=== PATIENT | male | born 1980 ===

== ENCOUNTER 2017-10-09 11:00 | Emergency (ER) | payer OTHER ==
[2017-10-09 11:11] VITALS: BP 99/67; PULSE 89; RESP 18; TEMP 98.2; O2SAT 97
--- NOTE | 2017-10-09 11:30 | C.PDOC ---
History Of Present Illness 36 yo male come in for evaluation of Right knee pain gradually developed for past 1 year. Pt reports, for past few days, pain significantly worsen, localized , worse with weight bearing,. Pt admits, "ambulate for work a lot". Pt sts, take Ibuprofen at home without improvement. Otherwise, pt denies known direct trauma or injury, fever, chills, sore throat, denies swelling , redness, deformity, weakness, sensory or vascular deficits to Right leg. Ambulate to Ed for evaluation, not in any apparent distress. Time Seen by Provider: 10/09/17 11:18 Chief Complaint (Nursing): Lower Extremity Problem/Injury History Per: Patient Past Medical History Reviewed: Historical Data, Nursing Documentation, Vital Signs Vital Signs: Last Vital Signs Temp 98.2 F 10/09/17 11:08 Pulse 89 10/09/17 11:08 Resp 18 10/09/17 11:08 BP 99/67 L 10/09/17 11:08 Pulse Ox 97 10/09/17 11:08 - Medical History PMH: No Chronic Diseases Surgical History: No Surg Hx Family History: States: No Known Family Hx - Social History Hx Alcohol Use: Yes Hx Substance Use: No - Immunization History Hx Tetanus Toxoid Vaccination: Yes Hx Influenza Vaccination: Yes Hx Pneumococcal Vaccination: No Review Of Systems Except As Marked, All Systems Reviewed And Found Negative. Constitutional: Negative for: Fever, Chills ENT: Negative for: Throat Pain Musculoskeletal: Positive for: Other (Right knee pain) Skin: Negative for: Rash, Lesions, Bruising Neurological: Negative for: Weakness, Numbness Physical Exam - Physical Exam Appears: Well, Non-toxic, No Acute Distress Skin: Normal Color, Warm, No Rash, No Ecchymosis Oral Mucosa: Moist Throat: No Erythema, No Exudate, No Drooling Extremity: Normal ROM (mild discomfort to Right knee flexion. NO neurovascular deficits.), Tenderness (over anterior aspect Right knee, no edmea, no erythema.) , No Calf Tenderness (right), Capillary Refill (less than 2sec to Right foot), No Deformity, No Swelling Neurological/Psych: Oriented x3, Normal Speech, Normal Motor, Normal Sensation, Normal Reflexes ED Course And Treatment O2 Sat by Pulse Oximetry: 97 - Other Rad Right knee X-Ray: Interpreted by Me, Viewed By Me Interpretation: (-) acute fx or dislocation Progress Note: On re-eval, pt is afebrile, hemodynamicaly stable. Non-toxic. Ambulatory in ED with stable gait. ENT: no acute findings. Right kne: mild tendernes sover patella, no edema, no erythema, no palpable deformity. FAROM, no neurovascular deficits. Imaging review (-) acute fx or disloctaion. Vladislav wrap applied to Right knee. Pt has clinical findings c/w Right knee arthralgia. Pt advised and ref. to F/u with PMD, Ortho in 2 -3 days for re- eavl. return to Ed if any worsening or new changes. Disposition Counseled Patient/Family Regarding: Studies Performed, Diagnosis, Need For Followup, Rx Given - Disposition Referrals: Lucio Mckeon MD [Staff Provider] - Anish Hargrove MD [Staff Provider] - Disposition: HOME/ ROUTINE Disposition Time: 11:40 Condition: STABLE Additional Instructions: RICE-REST, ICE, COMPRESSION, ELEVATION VLADISLAV WRAP TO RIGHT KNEE FOR 2-3 WEEKS TAKE MEDICATION PRESCRIBED FOLLOW UP WITH ORTHOPEDIST IN 2-3 DAYS FOR RE-EVALUATION. RETURN TO ED IF ANY NEW CHANGES. Prescriptions: Prednisone [Deltasone] 40 mg PO DAILY #6 tablet traMADol [Ultram] 50 mg PO TID #7 tab Instructions: Knee Sprain (DC), Chronic Knee Pain (DC) - Clinical Impression Clinical Impression: Arthralgia of knee
--- NOTE | 2017-10-09 11:59 | RAD ---
Date of service: 10/09/2017 PROCEDURE: Right Knee Radiographs. HISTORY: pain COMPARISON: None. FINDINGS: BONES: Normal. No fracture. JOINTS: Normal. No osteoarthritis. JOINT EFFUSION: None. OTHER FINDINGS: None. IMPRESSION: Normal radiographs of the right knee.
== END 2017-10-09 12:18 | disposition home or self-care (01) ==
LOC: C.ER 11:00
DX: M25.561 Pain in right knee (principal)

== ENCOUNTER 2017-12-29 14:00 | Emergency (ER) | payer OTHER ==
--- NOTE | 2017-12-29 15:30 | C.PDOC ---
History Of Present Illness 37 year old male presents to the ED complaining of stabbing abdominal pain ongoing for 5 days. Pain started when he was doing laundry. Reports his father recently . Notes he had a similar presentation of pain many years ago when his 's uncle . He denies any SI / HI or current suicidal ideation. Denies any fever, chills, shortness of breath, chest pain, nausea, vomiting, diarrhea, constipation, urinary symptoms, or any other complaints. States he took 3 Advils [employer] and reports pain is improving. Time Seen by Provider: 12/29/17 15:30 Chief Complaint (Nursing): Abdominal Pain History Per: Patient History/Exam Limitations: no limitations Onset/Duration Of Symptoms: Days Current Symptoms Are (Timing): Better Location Of Pain/Discomfort: Epigastric Radiation Of Pain To:: None Quality Of Discomfort: Stabbing Associated Symptoms: denies: Fever, Chills, Nausea, Vomiting, Diarrhea, Chest Pain, Urinary Symptoms Past Medical History Reviewed: Historical Data, Nursing Documentation, Vital Signs Vital Signs: Last Vital Signs Temp 98.9 F 12/29/17 14:24 Pulse 80 12/29/17 14:24 Resp 18 12/29/17 14:24 BP 105/72 12/29/17 14:24 Pulse Ox 99 12/29/17 14:24 - Medical History PMH: No Chronic Diseases Surgical History: No Surg Hx Family History: States: No Known Family Hx - Social History Hx Tobacco Use: Yes Hx Alcohol Use: Yes Hx Substance Use: No - Immunization History Hx Tetanus Toxoid Vaccination: No Hx Influenza Vaccination: No Hx Pneumococcal Vaccination: No Review Of Systems Constitutional: Negative for: Fever, Chills, Weakness, Malaise Eyes: Negative for: Pain, Eyelid Inflammation ENT: Negative for: Ear Pain, Nose Congestion, Mouth Pain Cardiovascular: Negative for: Chest Pain, Palpitations, Edema Respiratory: Negative for: Shortness of Breath, SOB with Excertion Gastrointestinal: Positive for: Abdominal Pain (epigastric ). Negative for: Nausea, Vomiting, Diarrhea, Constipation, Melena, Hematemesis Genitourinary: Negative for: Dysuria, Hematuria, Penile Discharge Musculoskeletal: Negative for: Neck Pain, Shoulder Pain, Back Pain Skin: Negative for: Rash, Lesions Neurological: Negative for: Weakness, Numbness Psych: Negative for: Anxiety, Depression, Psychosis, Suicidal ideation, Withdrawal Physical Exam - Physical Exam Appears: Non-toxic, No Acute Distress Skin: Warm, Dry, No Rash Head: Normacephalic Eye(s): bilateral: Normal Inspection Nose: Normal Oral Mucosa: Moist Neck: Normal, Normal ROM, Supple, Other (no meningeal signs) Cardiovascular: Rhythm Regular Respiratory: No Rales, No Rhonchi, No Wheezing Gastrointestinal/Abdominal: No Normal Exam, Soft, Tenderness (epigastric ), No Organomegaly, No Mass, No Distention, No Guarding, No Rebound, No Hernia Back: Normal Inspection, No CVA Tenderness Extremity: Bilateral: Atraumatic, Normal Color And Temperature, Normal ROM Neurological/Psych: Oriented x3, Normal Speech, Normal Cognition, Normal Cranial Nerves, No Cerebellar Signs, Normal Motor Gait: Steady Extremity: Right: No Drift, Left: No Drift, Upper: No Drift, Lower: No Drift ED Course And Treatment - Laboratory Results Result Diagrams: 12/29/17 15:54 12/29/17 15:54 O2 Sat by Pulse Oximetry: 99 (RA) Pulse Ox Interpretation: Normal Medical Decision Making Medical Decision Makin yr old male p/w epigastric abd pain, non rlq/llq/ruq. No CVAT or vertebral tenderness. Well appearing on exam. No rebound or guarding. No Vomiting / diarrhea / constipation / nausea. Likely msk pain vs gastritis given pt was working when pain occured. No urinary complaints. Orders: - Pepcid 20mg IVP - IV fluids - Bloodwork 1639 labs unremarkable lactic unremarkable pain improved on re-exam remains w/ out rlq or llq pain. Epigastric pain resolved. abdomen non-ttp. Normal neuro exam. No meningeal signs. No SI or HI. No abl affect. No depression clear for d/c home with return indications and followup, pt agreeable. Disposition - Disposition Disposition Time: 16:39 Condition: GOOD Forms: [facility] (Mauritanian) - Clinical Impression Clinical Impression: Gastritis - Scribe Statement The provider has reviewed the documentation as recorded by the Philippibtheron Scott All medical record entries made by the Scribe were at my direction and personally dictated by me. I have reviewed the chart and agree that the record accurately reflects my personal performance of the history, physical exam, medical decision making, and the department course for this patient. I have also personally directed, reviewed, and agree with the discharge instructions and disposition.
[2017-12-29] MEDS ORDERED: Sodium Chloride 0.9% 1,000 ML IV SCH (15:45)
[2017-12-29 16:02] LABS: BASO # 0.1 K/uL (0.0-0.2); BASO % 0.9 % (0.0-2.0); EOS # 0.1 K/uL (0.0-0.7); EOS % 2.1 % (0.0-4.0); HEMOGLOBIN 16.1 g/dL (12.0-18.0); LYMPH # 1.5 K/uL (1.0-4.3); LYMPH % 24.2 % (20.0-40.0); MEAN CELL VOLUME 92.4 fL (80.0-94.0); MEAN CORPUSCULAR HEMOGLOBIN 30.6 pg (27.0-31.0); MEAN CORPUSCULAR HGB CONC 33.1 g/dL (33.0-37.0); MONO # 0.4 K/uL (0.0-0.8); MONO % 6.5 % (0.0-10.0); NEUT # 4.1 K/uL (1.8-7.0); NEUT % 66.3 % (50.0-75.0); NRBC % 0.1 % (0.0-2.0); RBC 5.25 Mil/uL (4.40-5.90); RED CELL DISTRIBUTION WIDTH 12.7 % (11.5-14.5); WHITE BLOOD COUNT 6.1 K/uL (4.8-10.8)
[2017-12-29 16:10] LABS: ALB/GLOB RATIO 1.6 (1.0-2.1); ALBUMIN 4.4 g/dL (3.5-5.0); BLOOD UREA NITROGEN 13 mg/dL (9-20); CALCIUM 9.4 mg/dl (8.6-10.4); GFR NON-AFRICAN AMERICAN > 60; LIPASE 83 U/L (23-300)
[2017-12-29 16:11] LABS: ALT/SGPT 30 U/L (21-72); AST/SGOT 35 U/L (17-59)
[2017-12-29 16:30] LABS: VENOUS BLOOD GAS BASE EXCESS 3.2 mmol/L (0.0-2.0); VENOUS BLOOD GAS PCO2 58 mmHg (40-60); VENOUS BLOOD GAS PO2 21 mm/Hg (30-55); VENOUS BLOOD PH 7.33 (7.32-7.43)
[2017-12-29 16:51] VITALS: BP 114/72; PULSE 78; RESP 20; TEMP 98.4; O2SAT 98
== END 2017-12-29 17:11 | disposition home or self-care (01) ==
LOC: C.ER 14:00
DX: K29.70 Gastritis, unspecified, without bleeding (principal)
CPT/HCPCS: 80053; 82803; 83690; 85025; 96361; 96374; 99284; J7030